=== PATIENT | female | born 1995 | race Caucasian/White ===

== ENCOUNTER 2024-01-28 19:54 | Emergency (ER) | payer BC, SELFPAY ==
[2024-01-28 19:55] VITALS: BP 135/96
--- NOTE | 2024-01-28 20:30 | ED.GENMED ---
History of Present Illness
General
Chief Complaint: Urinary Symptoms
Source: patient
Exam Limitations: none
Time Seen by Provider: 01/28/24 20:09
Travel History
Have you had any contact with someone who has COVID-19?: No
Do you have any symptoms of coronavirus? Fever > 100 degrees, chills, cough, shortness of breath, sore throat, loss of taste or smell, muscle aches, or headache?: Yes
Symptoms:: fever
History of Present Illness
History of Present Illness:
28-year-old female burning frequency now with some fever and back pain. Has a history of frequent UTIs. Started Macrodantin 3 days ago prophylactically. Last UTI was a few months ago. Dysuria or frequency. Now with some back pain. No vaginal
discharge. Patient did have unprotected sex 5 days ago.
Past History
Past History
ED Past Medical History: Other (Strep throat. Frequent UTIs)
ED Past Surgical History: None
Social History
Tobacco: Non-smoker
Phy Exam
Physical Exam
Physical Exam:
GENERAL: Alert and oriented in no apparent distress
EYE: Orbits normal.
NECK: Supple
CARDIAC: Regular rate and rhythm without any obvious murmurs.
LUNGS: Clear breath sounds,normal
ABDOMEN: Soft, without focal tenderness or distention. No CVA tenderness
NEUROLOGICAL: Alert and oriented , grossly non-focal
SKIN: Warm and dry
PSYCH: Normal and appropriate interaction.
Course
Orders/Labs/Results
Orders:
Orders
01/28/24 20:19
CT Abd/pel Without Iv Or Oral Urgent
Comment:
Reason For Exam: Back pain/fever
IV Insert/Care/Rem.- Treatment PRN
Chlamydia/GC by PCR Urgent
[facility] Source: Urine
Specimen Description:
Source:: URINE
Date Specimen was Collected: 01/28/24
Time Specimen was Collected: 21:59
0.9% Sodium Chloride 1000 ml [Nss] 1,000 ml IV BOLUS
0.9% Sodium Chloride 1000 ml [Nss] 1,000 ml IV BOLUS
Acetaminophen [Tylenol] 650 mg PO NOW STA
Test Result ONCE
01/28/24 20:34
Complete Blood Count/With Diff Urgent
Comprehensive Metabolic Panel Urgent
HCG, Serum Qualitative Screen Urgent
Blood Culture Q30M
[facility] Source: Blood/Venous
Specimen Description:
Blood Culture Q30M
[facility] Source: Blood/Venous
Specimen Description:
01/28/24 22:04
Urinalysis Reflex To Culture Urgent
Date Specimen was Collected: 01/28/24
Time Specimen was Collected: :59
Urine Microscopic Reflex Cult Urgent
Urine Culture Urgent
[facility] Source: U
Specimen Description:
Date Specimen was Collected: 01/28/24
Time Specimen was Collected: :59
01/28/24 22:29
CefTRIAXone [Rocephin] 1,000 mg IV NOW STA
01/28/24 22:36
Add On- LAB Urgent
Tests Added?: urine gc/chlymadia pcr
Abnormal Lab Results
01/28/24 01/28/24
20:34 22:04
RBC 4.19 L 10^6/uL
(4.20-5.40)
MCH 32.9 H pg
(27.0-31.0)
Absolute Lymphs (auto) 1.0 L 10^3/uL
(1.2-3.4)
Absolute Monos (auto) 0.8 H 10^3/uL
(0.1-0.6)
Lymphocytes % 15.1 L %
(20.5-51.1)
Monocytes % 12.4 H %
(1.7-9.3)
Ur Occult Blood Reflex 1+ A
(Negative)
Leukocyte Esterase Rfl Trace A
(Negative)
Urine RBC 7-10 A /HPF
(0-2)
Urine Bacteria (Reflex) Moderate A
(Negative)
01/28/24 20:34
01/28/24 20:34
Vital Signs
Initial and Last Documented VS:
Initial Vital Signs
Temp Pulse Resp BP Pulse Ox
100.4 F H 112 18 135/96 99
01/28/24 19:55 01/28/24 19:55 01/28/24 19:55 01/28/24 19:55 01/28/24 19:55
Last Documented Vital Signs
Temp Pulse Resp BP Pulse Ox
100.4 F H 112 18 135/96 99
01/28/24 19:55 01/28/24 19:55 01/28/24 19:55 01/28/24 19:55 01/28/24 19:55
*Radiology
Radiology exam reviewed: radiology read reviewed (No acute hydronephrosis or hydroureter or kidney stone. Mass right breast.)
*Pulse Oximetry
Patient hypoxic: no
*Critical Care Note
Total Time (30-74mins, 75-104mins- exclusive of procedures): Not Applicable
Update Note
Update Note:
Urinalysis was fairly unremarkable at the urgent care. However patient has been on Macrodantin. Symptoms consistent with a pyelonephritis. Will get a CT scan to rule out obstructing stone with the back pain.
Clinically this is likely an early pyelonephritis. No other explanation for patient's symptoms. Partially treated and therefore negative urine. Patient was given a copy of CT report to follow-up with the breast mass. She is aware of this.
ED Attending Note
-
Portions of this chart may have been created with voice recognition software.� Occasional wrong word or��sound alike� substitutions may have occurred due to the inherent limitations of voice recognition software.
Discharge Plan
Departure
Patient Disposition: Home (Routine Discharge)
Date of Disposition: 01/28/24
Time of Disposition: 22:31
Patient with high blood pressure during this ER visit?: Yes
Discharge Problem:
Pyelonephritis, Known right breast mass
Instructions: Urinary Tract Infection, Adult ED, BLOOD PRESSURE
Prescriptions:
New
cefdinir 300 mg capsule
300 mg PO BID 7 Days Qty: 14 0RF
No Action
Excedrin Extra Strength 250-250-65 mg Tablet
2 tab PO DAILYPRN PRN (Reason: headache)
bupropion HCl 150 mg Tablet Extended Release 24 Hr
150 mg PO DAILY
Referrals:
Fabio Lang MD [Active] - Next open appointment
UNKNOWN - PT DOES,NOT KNOW [Family Provider] -
Activity Restrictions/Additional Instructions:
Start the antibiotic tomorrow night as we discussed
Follow-up with your primary physician. I did give you the name of a urologist you could follow-up with
Follow-up with the breast mass as we discussed. I know you are aware of this issue
Recheck with high fever increased back pain vomiting persistent fever or if symptoms do not resolve in 2 to 3 days
Interventions
Interventions:
*Risk Screen - Suicide Last Done: 01/28/24 19:55
*General Assessment Last Done: 01/28/24 19:55
*Neglect/Abuse Screening Last Done: 01/28/24 19:55
*ED COVID-19 Vaccine History Last Done: 01/28/24 20:31
*Nursing Disposition Last Done: 01/28/24 23:15
ED-Female Genitourinary Assessment Last Done: 01/28/24 20:32
ED-Musculoskeletal Assessment Last Done: 01/28/24 20:31
Discharge Date and Time
Discharge Date/Time: 01/28/24 23:16
Print Language: PAKISTANI
[2024-01-28 20:31] VITALS: BMI 23.5
[2024-01-28] MEDS: NSS 1000 IV ×2 (20:35→21:58)
[2024-01-28] MEDS: TYLENOL 650 MG PO (20:39)
[2024-01-28 20:41] LABS: % Basophils 0.6 % (0-2); % Eosinophils 0.8 % (0-6); % Immature Granulocytes 0.3 % (0-0.5); % Lymphocytes 15.1 % (20.5-51.1); % Monocytes 12.4 % (1.7-9.3); % Neutrophils 70.8 % (42.2-75.2); Absolute Eosinophils 0.1 10^3/uL (0-0.7); Absolute Monocytes 0.8 10^3/uL (0.1-0.6); Absolute Neutrophils 4.7 10^3/uL (1.4-6.5); Hematocrit 38.4 % (37.0-47.0); Hemoglobin 13.8 g/dL (12.0-16.0); Mean Corp Hgb Conc. 35.9 g/dL (33.0-37.0); Mean Corpuscular Hgb 32.9 pg (27.0-31.0); Mean Corpuscular Volume 91.6 fL (81.0-99.0); Mean Platelet Volume 9.1 fL (7.4-10.4); Nucleated Red Blood Cells % 0 %; Platelet Count 186 10^3/uL (130-400); Red Blood Cell Count 4.19 10^6/uL (4.20-5.40); Red Cell Dist. Width 11.7 % (11.5-14.5); White Blood Cell Count 6.6 10^3/uL (4.8-10.8)
[2024-01-28 20:55] LABS: HCG, Serum Qualitative Screen Negative
[2024-01-28 20:58] LABS: ALT (SGPT) 22 U/L (0-35); AST (SGOT) 26 U/L (14-36); Albumin 4.8 g/dl (3.5-5.0); Alkaline Phosphatase 61 U/L (38-126); Blood Urea Nitrogen 14 mg/dl (7-17); Calcium 9.4 mg/dl (8.4-10.2); Carbon Dioxide 27 mmol/L (22-30); Chloride 99 mmol/L (98-107); Estimated Creatinine Clearance 113 ml/min; Glucose 90 mg/dl (70-99); Potassium 3.9 mmol/L (3.5-5.1); Sodium 137 mmol/L (135-145); Total Bilirubin 0.4 mg/dl (0.2-1.3); Total Protein 7.4 g/dl (6.3-8.2); eGFR > 60.00
[2024-01-28 22:10] LABS: Urine Albumin Negative (Neg - Trace); Urine Bilirubin Negative (Negative); Urine Character Clear (Clear); Urine Color Yellow; Urine Glucose Negative (Negative); Urine Ketone Negative (Negative); Urine Leukocyte Trace (Negative); Urine Nitrite Negative (Negative); Urine Occult Blood 1+ (Negative); Urine Urobilinogen Negative (Neg - 1+)
[2024-01-28 22:22] LABS: Urine Squamous Cell 16-20 /LPF (Few)
[2024-01-28 22:24] LABS: Urine Bacteria Moderate (Negative); Urine Mucus Few
[2024-01-28] MEDS: ROCEPHIN 1000 MG IV (22:38)
== END 2024-01-28 23:16 | disposition home or self-care (01) ==
LOC: EMR 19:54
PROVIDERS: EMERGENCY PHYSICIAN Emergency Medicine
DX: N12 Tubulo-interstitial nephritis, not specified as acute or chronic (principal); N63.10 Unspecified lump in the right breast, unspecified quadrant; Z87.440 Personal history of urinary (tract) infections
CPT/HCPCS: 99284; 96374; 96361; 74176; 80053; 81003; 81015; 84703; 85025; 87040; 87077; 87086; 87147; 87491; 87591